=== PATIENT | female | born 1985 | race Caucasian/White ===

== ENCOUNTER 2019-08-14 09:30 | Inpatient (IN) | payer OTHER ==
[~2019-08-14] VITALS: Ht 167.6 cm; Wt 77.1 kg
[2019-09-01] MEDS ORDERED: PRENATAL PLUS1 EAC1 PO (06:57)
== END 2019-09-03 13:18 | disposition home or self-care (01) | DRG 807 ==
LOC: LDR 09-01 06:32 → OB/GYN 09-01 09:30 → SURG-SUITE 09-01 13:27
PROVIDERS: ADMIT Obstetrics & Gynecology; ATTEND Obstetrics & Gynecology
PROC: 10E0XZZ Delivery of Products of Conception, External Approach (ICD-10-PCS; principal; 2019-09-01)
PROC: 4A1HXFZ Monitoring of Products of Conception, Cardiac Rhythm, External Approach (ICD-10-PCS; 2019-09-01)
PROC: 3E033VJ Introduction of Other Hormone into Peripheral Vein, Percutaneous Approach (ICD-10-PCS; 2019-09-01)
DX: O80 Encounter for full-term uncomplicated delivery (principal); Z37.0 Single live birth; Z3A.40 40 weeks gestation of pregnancy

== ENCOUNTER 2019-08-28 13:46 | Outpatient (CLI) | payer OTHER | END 2019-08-28 14:31 | disposition home or self-care (01) | LOC: NST 13:46 | PROVIDERS: ATTEND Obstetrics & Gynecology Maternal & Fetal Medicine | DX: Z34.83 Encounter for supervision of other normal pregnancy, third trimester (principal) ==

== ENCOUNTER 2022-02-15 18:29 | Outpatient (CLI) | payer OTHER ==
[~2022-02-15 18:29] MED LIST: PRENATAL PLUS1 EAC1 PO
== END 2022-02-15 19:41 | disposition home or self-care (01) ==
LOC: NST 18:29
PROVIDERS: ATTEND Obstetrics & Gynecology Gynecology
DX: Z34.83 Encounter for supervision of other normal pregnancy, third trimester (principal)

== ENCOUNTER 2022-02-15 19:42 | Inpatient (IN) | payer OTHER ==
[~2022-02-15] VITALS: Ht 167.6 cm; Wt 79.4 kg
== END 2022-02-17 14:48 | disposition home or self-care (01) | DRG 798 ==
LOC: OB/GYN 19:42 → LDR 19:42 → OB/GYN 22:35
PROVIDERS: ADMIT Obstetrics & Gynecology Maternal & Fetal Medicine; ATTEND Obstetrics & Gynecology Maternal & Fetal Medicine
PROC: 10E0XZZ Delivery of Products of Conception, External Approach (ICD-10-PCS; principal; 2022-02-15)
PROC: 4A1HXCZ Monitoring of Products of Conception, Cardiac Rate, External Approach (ICD-10-PCS; 2022-02-15)
PROC: 0UB70ZZ Excision of Bilateral Fallopian Tubes, Open Approach (ICD-10-PCS; 2022-02-16)
DX: O80 Encounter for full-term uncomplicated delivery (principal); Z37.0 Single live birth; Z3A.38 38 weeks gestation of pregnancy; Z30.2 Encounter for sterilization; Z20.822 Contact with and (suspected) exposure to COVID-19